=== PATIENT | male | born 1995 | race African-American/Black ===

== ENCOUNTER 2020-08-17 10:41 | Emergency (ER) | payer SELFPAY ==
[~2020-08-17] VITALS: Ht 177.8 cm; Wt 71.3 kg
--- NOTE | 2020-08-17 11:31 | ED Headache ---
General Chief Complaint: Head/Cervical Problems Stated Complaint: [facility] Nursing Triage Note: AMB TO ROOM C/O HEADACHE SINCE THIS AM HAS HX OF HEADCHES HAS NOT TAKEN ANYTHING FOR HIS HEADACHE TODAY. DENIES ALL COVID SYMPTOMS. OR EXPOSURE Nursing Sepsis Screen: No Definite Risk Source: patient Exam Limitations: no limitations (PINEDA CHONG MD) History of Present Illness Date Seen by Provider: Aug 17, 2020 Time Seen by Provider: 11:20 Timing/Duration: 1-3 hours Severity/Quality: moderate Location: temporal (right) Prior Headaches/Recent Trauma: occasional headaches Modifying Factors: worse with exposure to light Associated Symptoms: denies symptoms (PINEDA CHONG MD) Initial Comments 24-year-old -Polish male presents with a headache that is been present since last evening. He awoke with it this morning. He has a history of migraines with his last one being approximately 3 days ago. He is not on any medications routinely for this he is complaining of photophobia and nausea with vomiting x1 since admission. He has not taken any medication for the pain or nausea. He reports moving here approximately 4 months ago from [facility]. He does not have a primary care provider. He denies any visual changes at this time but at the onset of the headache he did see some bright lines. He has never been on routine medications for migraines. (YARELI BRAVO) Allergies and Home Medications Allergies Coded Allergies: No Known Drug Allergies (Unverified , 08/17/20) Patient Home Medication List Home Medication List Reviewed: Yes (YARELI BRAVO) Review of Systems Review of Systems Constitutional: no symptoms reported, see HPI Gastrointestinal: see HPI, nausea, vomiting Psychiatric/Neurological: See HPI, Headache (YARELI BRAVO) All Other Systems Reviewed Negative Unless Noted: Yes (YARELI BRAVO) Past Udnjbkk-Dowxpo-Axrabj Hx Past Med/Social Hx: Reviewed Nursing Past Med/Soc Hx (YARELI BRAVO) Patient Social History Alcohol Use: Denies Use Smoking Status: Current Everyday Smoker Recent Infectious Disease Expo: No (PINEDA CHONG MD) Drug of Choice: Marijuana (YARELI BRAVO) Physical Exam Vital Signs Vital Signs - First Documented 08/17/20 10:52 Temp 35.6 Pulse 74 Resp 18 B/P (MAP) 117/81 (93) Pulse Ox 100 O2 Delivery Room Air (YARELI BRAVO) Vital Signs Capillary Refill : Less Than 3 Seconds (PINEDA CHONG MD) Height, Weight, BMI Height: '" Weight: lbs. oz. kg; 22.00 BMI Method: (PINEDA CHONG MD) General Appearance: WD/WN, mild distress (Secondary to pain and photophobia) HEENT: PERRL/EOMI, normal ENT inspection, TMs normal, pharynx normal Neck: non-tender, full range of motion, supple, normal inspection Cardiovascular: normal peripheral pulses, regular rate, rhythm Respiratory: chest non-tender, lungs clear, normal breath sounds Gastrointestinal: normal bowel sounds, non tender, soft Extremities: normal range of motion, non-tender, normal inspection Psychiatric: alert, oriented x 3, depressed affect Crainal Nerves: normal hearing, normal speech, PERRL Coordination/Gait: normal finger to nose, normal gait Motor/Sensory: no motor deficit, no sensory deficit Skin: normal color, warm/dry (YARELI BRAVO) Progress/Results/Core Measures Results/Orders My Orders Orders - YARELI BRAVO Ed Iv/Invasive Line Start (08/17/20 12:14) Ns Iv 1000 Ml (Sodium Chloride 0.9%) (08/17/20 12:15) Promethazine Injection (Phenergan Injec (08/17/20 12:15) Ketorolac Injection (Toradol Injection) (08/17/20 12:14) (YARELI BRAVO) Medications Given in ED Current Medications Medications Dose Ordered Sig/Camilo Route Start Time Stop Time Status Last Admin Dose Admin Promethazine HCl 25 mg ONCE ONCE IVP 08/17/20 12:15 08/17/20 12:16 DC 08/17/20 12:35 25 MG (YARELI BRAVO) Vital Signs/I&O 08/17/20 10:52 Temp 35.6 Pulse 74 Resp 18 B/P (MAP) 117/81 (93) Pulse Ox 100 O2 Delivery Room Air (YARELI BRAVO) Blood Pressure Mean: 93 Progress Progress Note : Time: 11:20 Progress Note Patient seen and evaluated initially by the medical student and assumed care by this provider@ 1200. Reviewed assessment and documentation. 1210 normal saline 1 L per IV, Toradol 30 mg IV and Phenergan 25 mg IV. 1315 Patient sleeping, snoring. Easily arousable. Reports that his headache is resolved. Offered to start on medication for migraines, he prefers to be seen at the clinic. Discharge instructions and return precautions reviewed. (YARELI BRAVO) Departure Impression Primary Impression: Migraine Qualified Codes: G43.109 - Migraine with aura, not intractable, without status migrainosus Disposition: HOME, SELF-CARE Condition: Improved Departure-Patient Inst. Decision time for Depature: 13:15 (YARELI BRAVO) Referrals: [facility] Patient Instructions: Migraines (DC) Add. Discharge Instructions: Take Excedrin Migraine at the onset of headache. Schedule appointment with [facility] for follow-up and to obtain medication for migraines. Increase water intake, 16 ounces every 2 hours while awake. Return to the emergency department for new, urgent healthcare needs. All discharge instructions reviewed with patient and/or family. Voiced understanding. PINEDA CHONG MD Aug 17, 2020 11:31 YARELI BRAVO Aug 17, 2020 12:39
[2020-08-17] MEDS ORDERED: KETOROLAC 30 MG/ML VIAL IVP STA (12:14)
[2020-08-17] MEDS ORDERED: PROMETHAZINE INJ 25 MG/ML (PHENERGAN) AMP IVP ONE (12:15)
[2020-08-17] MEDS ORDERED: NS IV 1000 ML 1,000 ML IV SCH (12:15)
[2020-08-17 13:42] VITALS: BP 116/74
== END 2020-08-17 13:41 | disposition home or self-care (01) ==
LOC: ER 10:44
DX: G43.909 Migraine, unspecified, not intractable, without status migrainosus (principal); F17.200 Nicotine dependence, unspecified, uncomplicated